=== PATIENT | male | born 1950 | race Caucasian/White ===

== ENCOUNTER 2018-11-23 10:35 | Emergency (ER) | payer MEDICARE, BC ==
[2018-11-23] MEDS ORDERED: HUMULIN R 100 UNIT/ML VIAL SC ONE (10:36)
[2018-11-23] MEDS ORDERED: 0.9 % SODIUM CHLORIDE 1,000 ML BAG IV ONE ×2 (10:46→13:01)
[2018-11-23] MEDS ORDERED: HUMULIN R 100 UNIT/ML VIAL IV ONE (10:50)
--- NOTE | 2018-11-23 11:00 | Emergency Department Record ---
History of Present Illness - General Chief complaint: Hypergylcemia Stated complaint: HIGH BLOOD SUGAR/LABS THIS AM Time Seen by Provider: 11/23/18 10:45 Source: Patient Mode of Arrival: Ambulatory Limitations: No limitations - History of Present Illness Initial comments: The patient is here due to having out patient lab work done today which was ordered by his Transplant doctor in [place]. His blood sugar was found to be almost 600 so he was sent to the ER. The patient denies any nausea, vomiting, dysuria, CP, SOB, diarrhea or polyuria. He does have a hx of DM II and is only on Januvia. MD Complaint: Generalized weakness Onset/Timin -: Days(s) Severity: Moderate Severity scale (1-10): 4 Quality: Aching, Crushing - [place] Coma Scale Eye Response: (4) Open spontaneously Motor Response: (6) Obeys commands Verbal Response: (5) Oriented [place] Total: 15 - Related Data Home Medications Medication Instructions Recorded Confirmed Last Taken Albuterol Sulfate [Ventolin Hfa] 1 - 2 puff IH .EVERY 4-6 HOURS PRN 11/23/18 11/23/18 1 Day Ago ~11/22/18 Bethanechol Chloride [Urecholine] 25 mg PO BID 11/23/18 11/23/18 1 Day Ago ~11/22/18 Ezetimibe [Zetia] 10 mg PO DAILY 11/23/18 11/23/18 1 Day Ago ~11/22/18 Isosorbide Mononitrate [Imdur] 30 mg PO DAILY 11/23/18 11/23/18 1 Day Ago ~11/22/18 L.acidoph,Paracasei, B.lactis 1 each PO DAILY 11/23/18 11/23/18 1 Day Ago [Probiotic] ~11/22/18 Metoprolol Tartrate [Lopressor] 50 mg PO BID 11/23/18 11/23/18 1 Day Ago ~11/22/18 Nicotine [Nicoderm Cq Patch] 1 each TD DAILY 11/23/18 11/23/18 1 Day Ago ~11/22/18 Nitroglycerin 0.4MG [Nitrostat 1 tab SL DAILY PRN 11/23/18 11/23/18 1 Day Ago 0.4MG] ~11/22/18 Oxycodone HCl [Roxicodone] 5 mg PO QID 11/23/18 11/23/18 1 Day Ago ~11/22/18 Rosuvastatin Calcium [Crestor] 20 mg PO DAILY 11/23/18 11/23/18 1 Day Ago ~11/22/18 Simethicone 80 mg PO QID PRN 11/23/18 11/23/18 1 Day Ago ~11/22/18 Sodium Polystyrene Sulfonate 15 gm PO DAILY PRN 11/23/18 11/23/18 1 Day Ago [Kayexelate] ~11/22/18 Tamsulosin HCl [Flomax] 0.4 mg PO DAILY 11/23/18 11/23/18 1 Day Ago ~11/22/18 Warfarin Sodium [Coumadin] 2.5 mg PO DAILY 11/23/18 11/23/18 1 Day Ago ~11/22/18 Warfarin Sodium [Coumadin] 5 mg PO DAILY 11/23/18 11/23/18 1 Day Ago ~11/22/18 Allergies Allergy/AdvReac Type Severity Reaction Status Date / Time atorvastatin [From Lipitor] Allergy JOINT ACHES Verified 11/23/18 10:44 IV Constrast AdvReac Kidney Uncoded 11/23/18 10:44 transplant Travel Screening - Travel/Exposure Within Last 30 Days Have you traveled within the last 30 days?: No - Travel/Exposure Within Last Year Have you traveled outside the [place] in the last year?: No - Additonal Travel Details Have you been exposed to anyone with a communicable illness?: No - Travel Symptoms Symptom Screening: None Review of Systems Constitutional: Denies: Chills, Fever Eyes: Denies: Eye discharge ENT: Denies: Congestion Respiratory: Denies: Cough, Dyspnea Cardiovascular: Denies: Arrhythmia, Syncope Gastrointestinal: Denies: Abdominal pain, Nausea Genitourinary: Denies: Dysuria Musculoskeletal: Denies: Arthralgia Skin: Denies: Bruising Past Medical History - SOCIAL HISTORY Smoking Status: Current every day smoker Alcohol Use: None Drug Use: None - RESPIRATORY Hx Respiratory Disorders: No - CARDIOVASCULAR Hx Cardio Disorders: Yes Hx Cardiac Cath: Yes (stent X3) Hx Heart Attack: Yes (X2) Hx Hypertension: Yes Hx Irregular Heartbeat: No - NEURO Hx Neuro Disorders: No - GI Hx GI Disorders: Yes Hx Reflux: Yes - Hx Genitourinary Disorders: Yes Hx Renal Disease: Yes Comment:: forntal kidney transplant 16 years ago. - ENDOCRINE Hx Endocrine Disorders: Yes Hx Diabetes: Yes ("medically induced") - MUSCULOSKELETAL Hx Musculoskeletal Disorders: Yes Comment:: generalized chronic pain - PSYCH Hx Psych Problems: No - HEMATOLOGY/ONCOLOGY Hx Hematology/Oncology Disorders: Yes Comment:: stage 4 lymphoma in remission. Family Medical History Any Significant Family History?: Yes Family Hx Comment (NOT TO BE USED IN PLACE OF ITEMS BELOW): kidney failure Hx Heart Disease: Brother/Sister Hx Kidney Disease: Grandparents Physical Exam - General General Appearance: Alert, Oriented x3, Cooperative, No acute distress - Head Head exam: Atraumatic, Normocephalic, Normal inspection - Eye Eye exam: Normal appearance, PERRL - ENT Throat exam: Normal inspection. negative: Tonsillar erythema, Tonsillar exudate - Neck Neck exam: Normal inspection, Full ROM. negative: Tenderness - Respiratory Respiratory exam: Normal lung sounds bilaterally. negative: Respiratory distress - Cardiovascular Cardiovascular Exam: Regular rate, Normal rhythm, Normal heart sounds - GI/Abdominal GI/Abdominal exam: Soft, Normal bowel sounds. negative: Tenderness - Extremities Extremities exam: Normal inspection, Full ROM, Normal capillary refill. negative: Tenderness - Neurological Neurological exam: Alert. negative: Motor sensory deficit Course Vital Signs 11/23/18 10:37 Temperature 97.5 F L Pulse Rate 74 Respiratory 20 Rate Blood Pressure 170/90 Pulse Ox 96 - Reevaluation(s) Reevaluation #1: The patient is doing better but is still hyperglycemic with a blood sugar of 480. He is on his 2nd bag of IVF 500cc's. I did discuss the case with the admission ENGAGEMENT LEAD here at [facility] and due to his multiple medical issues she feels he should be at [facility] for this. I also did discuss the case with Dr. Maldonado and he does agree with the plan to transfer. I then did discuss the case with Dr. Love in the ER at [facility] and he does accept the patient for an ER to ER transfer. 11/23/18 13:19 Disposition Disposition: Transfer Clinical Impression: Hyperglycemia Disposition: Acute Care Hospital Transfer Transfer To: [facility] ER. Reason For Transfer: Transplant Accepting Physician: Kate. Time Discussed w/Accepting Physician: 13:21 Condition: (2) Stable Additional Instructions: Please proceed directly to the ER at [facility] for further treatment. Forms: Patient Portal Access Time of Disposition: 13:21 Quality - Quality Measures Quality Measures: N/A - Blood Pressure Screening View Details: Yes Does Patient Have Any of the Following: Active Dx of HTN Blood Pressure Classification: Hypertensive Reading Systolic Measurement: 170 Diastolic Measurement: 90 Screening for High Blood Pressure: Patient Exclusion, Hx of HTN [[id number]]
[2018-11-23 11:33] LABS: ACETONE,SERUM SMALL (NEGATIVE)
[2018-11-23 12:08] LABS: PARTIAL THROMBOPLASTIN TIME 26.7 SECONDS (24.5-39.1); PROTHROMBIN TIME (PATIENT) 9.9 SECONDS (9.5-12.1)
[2018-11-23 12:15] LABS: URINE APPEARANCE CLEAR; URINE BILIRUBIN NEGATIVE (NEGATIVE); URINE BLOOD SMALL (NEGATIVE); URINE COLOR YELLOW; URINE KETONE NEGATIVE (NEGATIVE); URINE LEUKOCYTE ESTERASE NEGATIVE (NEGATIVE); URINE NITRITE NEGATIVE (NEGATIVE); URINE UROBILINOGEN 0.2 E.U./dL (0.20 - 1.00)
[2018-11-23 12:27] LABS: URINE GLUCOSE (UA) >=1000 mg/dL (NEGATIVE)
[2018-11-23 12:45] LABS: URINE AMORPHOUS SEDIMENT 1+; URINE EPITHELIAL CELLS 0 - 2 (FEW); URINE RBC 0 - 2 (NONE SEEN); URINE WBC 0 - 2 (0-2/hpf)
== END 2018-11-23 13:43 | disposition short-term general hospital (02) ==
LOC: ER 10:35
DX: E11.65 Type 2 diabetes mellitus with hyperglycemia (principal); R53.1 Weakness; I10 Essential (primary) hypertension; F17.210 Nicotine dependence, cigarettes, uncomplicated; Z79.01 Long term (current) use of anticoagulants; Z79.84 Long term (current) use of oral hypoglycemic drugs; I25.2 Old myocardial infarction; E55.9 Vitamin D deficiency, unspecified; Z94.0 Kidney transplant status
CPT/HCPCS: 99285; 96374; 99284; 82800; 85730; 85610; 82306; 36416; 81001; 82009; 82948; 81015; 85027; 80069; J1815; J7030